=== PATIENT | female | born 1965 | race African-American/Black ===

== ENCOUNTER 2019-11-01 21:28 | Emergency (ER) | payer OTHER ==
[~2019-11-01] VITALS: Ht 165.1 cm; Wt 63.0 kg
[2019-11-02 04:19] VITALS: BP 135/7
[2019-11-02] MEDS ORDERED: KETOROLAC 30MG/ML VIAL IM ONE (04:30)
== END 2019-11-02 07:03 | disposition home or self-care (01) ==
LOC: ER 21:28
DX: G89.29 Other chronic pain (principal); R07.89 Other chest pain; M25.551 Pain in right hip; I10 Essential (primary) hypertension; I25.2 Old myocardial infarction; F14.10 Cocaine abuse, uncomplicated; F12.10 Cannabis abuse, uncomplicated
CPT/HCPCS: 93005; 96372; 99283; J1885

== ENCOUNTER 2020-05-15 13:52 | Emergency (ER) | payer OTHER ==
[~2020-05-15] VITALS: Ht 165.1 cm; Wt 7.0 kg
[2020-05-15] MEDS ORDERED: MAGNESIUM/ALUMINUM HYDROXIDE/SIMETHICONE 30ML UDC PO STA (14:20)
[2020-05-15] MEDS ORDERED: KETOROLAC 30MG/ML VIAL IV STA (14:20)
[2020-05-15] MEDS ORDERED: SODIUM CHLORIDE 0.9% 1,000 ML IV ONE (14:20)
[2020-05-15 15:22] LABS: CHLORIDE 106 mEq/L (98-107)
[2020-05-15 15:25] LABS: ETHANOL BLOOD < 10 mg/dL
[2020-05-15 15:26] LABS: INR 1.1; PROTHROMBIN TIME 12.1 sec (9.6-11.0)
[2020-05-15 15:30] LABS: HEMOGLOBIN. 7.3 g/dL (12.0-16.0); MEAN CORPUSCULAR HEMOGLOBIN 19.4 pg (28.0-32.0); MEAN CORPUSCULAR VOLUME 64.1 fL (81.0-99.0); MEAN PLATELET VOLUME 7.5 fl (7.4-10.4); PLATELET 428 x1000/uL (130-400); RED BLOOD CELL COUNT 3.75 mill/uL (4.2-5.4); RED CELL DISTRIBUTION WIDTH 21.3 % (11.6-14.6)
[2020-05-15 16:21] LABS: CLARITY URINE CLOUDY (CLEAR); COLOR URINE DARK YELLOW (YELLOW); KETONES URINE TRACE (NEGATIVE); LEUKOCYTE ESTERASE URINE 2+ (NEGATIVE); NITRITE URINE NEGATIVE (NEGATIVE); OCCULT BLOOD URINE NEGATIVE (NEGATIVE); PROTEIN URINE 1+ (NEGATIVE); SPECIFIC GRAVITY URINE 1.025 (1.005-1.030)
[2020-05-15 16:39] LABS: *AMPHETAMINES SCREEN URINE NEGATIVE (NEGATIVE); *BARBITURATES SCREEN URINE NEGATIVE (NEGATIVE)
[2020-05-15 16:40] LABS: *BENZODIAZEPINES SCREEN URINE NEGATIVE (NEGATIVE); *COCAINE SCREEN URINE PRESUMTIVE POSITIVE (NEGATIVE); CANNABINOID URINE SCREEN PRESUMTIVE POSITIVE (NEGATIVE); METHADONE URINE SCREEN NEGATIVE (NEGATIVE); OPIATES URINE SCREEN NEGATIVE (NEGATIVE); PHENCYCLIDINE URINE SCREEN PRESUMTIVE POSITIVE (NEGATIVE)
[2020-05-15] MEDS ORDERED: MAGNESIUM CITRATE 300ML SOLUTION PO ONE (16:45)
[2020-05-15 16:50] LABS: PLATELET ESTIMATE SLIGHTLY INCREASED
[2020-05-15 18:15] VITALS: BP 149/82
== END 2020-05-15 18:52 | disposition home or self-care (01) ==
LOC: ER 13:52
DX: N30.00 Acute cystitis without hematuria (principal); I25.2 Old myocardial infarction; I10 Essential (primary) hypertension; J44.9 Chronic obstructive pulmonary disease, unspecified; F14.10 Cocaine abuse, uncomplicated
CPT/HCPCS: 36415; 71045; 80053; 80305; 80320; 81003; 83690; 85025; 85610; 93005; 96374; 99285; J1885; J7030; G0480

== ENCOUNTER 2020-05-28 22:10 | Emergency (ER) | payer OTHER ==
[~2020-05-28] VITALS: Ht 157.5 cm; Wt 60.0 kg
[2020-05-29] MEDS ORDERED: MAGNESIUM/ALUMINUM HYDROXIDE/SIMETHICONE 30ML UDC PO STA (01:23)
[2020-05-29] MEDS ORDERED: DOCUSATE SODIUM SUGAR FREE 100MG/10ML UDC NG ONE (02:45)
[2020-05-29 05:00] LABS: CLARITY URINE CLOUDY (CLEAR); COLOR URINE YELLOW (YELLOW); KETONES URINE NEGATIVE (NEGATIVE); LEUKOCYTE ESTERASE URINE 2+ (NEGATIVE); NITRITE URINE NEGATIVE (NEGATIVE); OCCULT BLOOD URINE NEGATIVE (NEGATIVE); PH URINE 7.5 (4.5-8.0); PROTEIN URINE 1+ (NEGATIVE); SPECIFIC GRAVITY URINE 1.019 (1.005-1.030)
[2020-05-29 05:03] LABS: CHLORIDE 107 mEq/L (98-107)
[2020-05-29 05:15] LABS: BASOPHILS % 0.4 % (0.0-2.0); EOSINOPHILS % 0.3 % (0.0-5.0); HEMATOCRIT. 28.9 % (36.0-48.0); HEMOGLOBIN. 9.3 g/dL (12.0-16.0); LYMPHOCYTES % 14.1 % (20.0-50.0); MEAN CORPUSCULAR HEMOGLOBIN 26.3 pg (28.0-32.0); MEAN CORPUSCULAR VOLUME 81.7 fL (81.0-99.0); MEAN PLATELET VOLUME 7.4 fl (7.4-10.4); MONOCYTES % 5.4 % (2.0-8.0); NEUTROPHILS % 79.8 % (40.0-76.0); PLATELET 347 x1000/uL (130-400); RED BLOOD CELL COUNT 3.54 mill/uL (4.2-5.4); RED CELL DISTRIBUTION WIDTH 26.3 % (11.6-14.6)
[2020-05-29] MEDS ORDERED: IPRATROPIUM BROMIDE (0.02%) 0.5MG/2.5ML NEB HHN STA (05:20)
[2020-05-29] MEDS ORDERED: ALBUTEROL (0.083%) 2.5MG/3ML NEB HHN STA (05:20)
[2020-05-29] MEDS ORDERED: ACETAMINOPHEN 325MG TABLET PO ONE (05:45)
[2020-05-29] MEDS ORDERED: CEFTRIAXONE 1 G PREMIX 50 ML IV ONE (06:00)
[2020-05-29] MEDS ORDERED: OLANZAPINE 10 MG/VIAL IM ONE (06:00)
[2020-05-29 06:56] LABS: PLATELET ESTIMATE NORMAL
[2020-05-29] MEDS ORDERED: METHYLPREDNISOLONE SOD SUCC 125 MG/2 ML VIAL IV STA (07:30)
[2020-05-29 09:45] VITALS: BP 124/65
== END 2020-05-29 10:22 | disposition short-term general hospital (02) ==
LOC: ER 22:10 → EDBEDREQTM 05-29 07:04 → EDBEDREQ 05-29 07:04 → ER 05-29 10:22 → CANBEDREQ 05-29 14:07
DX: R06.02 Shortness of breath (principal); N30.00 Acute cystitis without hematuria; J44.9 Chronic obstructive pulmonary disease, unspecified; I25.2 Old myocardial infarction; F14.10 Cocaine abuse, uncomplicated; Z98.890 Other specified postprocedural states
CPT/HCPCS: 36415; 71045; 80053; 81003; 81025; 85025; 87086; 94640; 96372; 96374; 96375; 99285; J0696; J2930; J3490; Z7610

== ENCOUNTER 2020-06-03 19:36 | Emergency (ER) | payer OTHER ==
[~2020-06-03] VITALS: Ht 172.7 cm; Wt 63.3 kg
[2020-06-03] MEDS ORDERED: ASPIRIN 81MG TABLET PO ONE (20:00)
[2020-06-03 20:45] LABS: BASOPHILS % 0.5 % (0.0-2.0); EOSINOPHILS % 0.7 % (0.0-5.0); HEMATOCRIT. 29.9 % (36.0-48.0); HEMOGLOBIN. 9.6 g/dL (12.0-16.0); LYMPHOCYTES % 12.1 % (20.0-50.0); MEAN CORPUSCULAR HEMOGLOBIN 25.7 pg (28.0-32.0); MEAN CORPUSCULAR VOLUME 80.1 fL (81.0-99.0); MEAN PLATELET VOLUME 7.6 fl (7.4-10.4); MONOCYTES % 10.9 % (2.0-8.0); NEUTROPHILS % 75.8 % (40.0-76.0); PLATELET 395 x1000/uL (130-400); RED BLOOD CELL COUNT 3.73 mill/uL (4.2-5.4); RED CELL DISTRIBUTION WIDTH 24.8 % (11.6-14.6)
[2020-06-03 20:52] LABS: CHLORIDE 106 mEq/L (98-107)
[2020-06-03 20:56] LABS: INR 1.2; PARTIAL THROMBOPLASTIN TIME 28.2 sec (23.4-31.0); PROTHROMBIN TIME 12.2 sec (9.6-11.0)
[2020-06-03 22:53] LABS: PLATELET ESTIMATE NORMAL
[2020-06-03 23:46] VITALS: BP 149/65
== END 2020-06-04 00:02 | disposition short-term general hospital (02) ==
LOC: ER 19:36 → CANBEDREQ 06-04 00:20
DX: R07.89 Other chest pain (principal); I10 Essential (primary) hypertension; I25.2 Old myocardial infarction; F14.10 Cocaine abuse, uncomplicated; F12.10 Cannabis abuse, uncomplicated; Z98.61 Coronary angioplasty status
CPT/HCPCS: 36415; 71045; 80053; 83880; 84484; 85025; 85610; 85730; 93005; 99285; Z7610

== ENCOUNTER 2020-06-26 03:45 | Emergency (ER) | payer OTHER ==
[~2020-06-26] VITALS: Ht 165.1 cm; Wt 64.0 kg
[2020-06-26] MEDS ORDERED: SODIUM CHLORIDE 0.9% 1,000 ML IV ONE (05:17)
[2020-06-26] MEDS ORDERED: HYDROCODONE/ACETAMINOPHEN 5/325MG TABLET PO ONE (05:30)
[2020-06-26] MEDS ORDERED: METHOCARBAMOL 500MG TABLET PO ONE (05:30)
[2020-06-26 06:32] LABS: HEMATOCRIT. 24.1 % (36.0-48.0); HEMOGLOBIN. 7.9 g/dL (12.0-16.0); MEAN CORPUSCULAR HEMOGLOBIN 26.9 pg (28.0-32.0); MEAN CORPUSCULAR VOLUME 82.2 fL (81.0-99.0); MEAN PLATELET VOLUME 6.6 fl (7.4-10.4); PLATELET 328 x1000/uL (130-400); RED BLOOD CELL COUNT 2.93 mill/uL (4.2-5.4); RED CELL DISTRIBUTION WIDTH 21.2 % (11.6-14.6)
[2020-06-26 06:39] LABS: CHLORIDE 104 mEq/L (98-107)
[2020-06-26 06:42] LABS: INR 1.1; PROTHROMBIN TIME 11.9 sec (9.6-11.0)
[2020-06-26 06:43] LABS: ETHANOL BLOOD < 10 mg/dL
[2020-06-26 07:24] LABS: PLATELET ESTIMATE NORMAL
[2020-06-26] MEDS ORDERED: LORAZEPAM 2MG/ML CPJ IV ONE (08:00)
[2020-06-26 08:45] LABS: *AMPHETAMINES SCREEN URINE NEGATIVE (NEGATIVE); *BARBITURATES SCREEN URINE NEGATIVE (NEGATIVE); *BENZODIAZEPINES SCREEN URINE NEGATIVE (NEGATIVE)
[2020-06-26 08:46] LABS: *COCAINE SCREEN URINE PRESUMTIVE POSITIVE (NEGATIVE); CANNABINOID URINE SCREEN PRESUMTIVE POSITIVE (NEGATIVE); METHADONE URINE SCREEN NEGATIVE (NEGATIVE); OPIATES URINE SCREEN PRESUMTIVE POSITIVE (NEGATIVE); PHENCYCLIDINE URINE SCREEN PRESUMTIVE POSITIVE (NEGATIVE)
[2020-06-26 18:22] VITALS: BP 139/91
== END 2020-06-26 18:22 | disposition home or self-care (01) ==
LOC: ER 03:45
DX: S16.1XXA Strain of muscle, fascia and tendon at neck level, initial encounter (principal); M62.830 Muscle spasm of back; J45.909 Unspecified asthma, uncomplicated; I25.2 Old myocardial infarction; I10 Essential (primary) hypertension; F14.10 Cocaine abuse, uncomplicated; F19.10 Other psychoactive substance abuse, uncomplicated; Z98.890 Other specified postprocedural states; X58.XXXA Exposure to other specified factors, initial encounter; Y93.89 Activity, other specified; Y92.89 Other specified places as the place of occurrence of the external cause; Y99.8 Other external cause status
CPT/HCPCS: 36415; 80048; 80305; 80320; 85025; 85610; 96374; 99285; J2060; J7030; G0480

== ENCOUNTER 2020-06-29 12:34 | Emergency (ER) | payer OTHER ==
[~2020-06-29] VITALS: Ht 167.6 cm; Wt 57.0 kg
[2020-06-29] MEDS ORDERED: HYDROCODONE/ACETAMINOPHEN 5/325MG TABLET PO ONE (13:15)
[2020-06-29 15:15] LABS: HEMATOCRIT. 24.1 % (36.0-48.0); HEMOGLOBIN. 7.9 g/dL (12.0-16.0); MEAN CORPUSCULAR HEMOGLOBIN 26.9 pg (28.0-32.0); MEAN CORPUSCULAR VOLUME 81.6 fL (81.0-99.0); MEAN PLATELET VOLUME 6.5 fl (7.4-10.4); PLATELET 325 x1000/uL (130-400); RED BLOOD CELL COUNT 2.95 mill/uL (4.2-5.4); RED CELL DISTRIBUTION WIDTH 21.4 % (11.6-14.6)
[2020-06-29 15:20] LABS: CHLORIDE 105 mEq/L (98-107)
[2020-06-29 15:22] LABS: INR 1.1; PROTHROMBIN TIME 11.7 sec (9.6-11.0)
[2020-06-29 15:58] VITALS: BP 148/88
[2020-06-29 16:25] LABS: NUCLEATED RED BLOOD CELLS 1 /100 WBC; PLATELET ESTIMATE NORMAL
== END 2020-06-29 15:58 | disposition home or self-care (01) ==
LOC: ER 12:34
DX: M79.671 Pain in right foot (principal); M79.672 Pain in left foot; I25.2 Old myocardial infarction; I10 Essential (primary) hypertension; J45.909 Unspecified asthma, uncomplicated
CPT/HCPCS: 36415; 73620; 80053; 85025; 99284

== ENCOUNTER 2020-09-04 08:28 | Emergency (ER) | payer OTHER ==
[~2020-09-04] VITALS: Ht 167.6 cm; Wt 70.0 kg
[2020-09-04] MEDS ORDERED: SODIUM CHLORIDE 0.9% 1,000 ML IV ONE (09:15)
[2020-09-04 09:26] LABS: HEMATOCRIT. 29.8 % (36.0-48.0); HEMOGLOBIN. 8.8 g/dL (12.0-16.0); MEAN CORPUSCULAR HEMOGLOBIN 19.9 pg (28.0-32.0); MEAN CORPUSCULAR VOLUME 67.1 fL (81.0-99.0); MEAN PLATELET VOLUME 7.6 fl (7.4-10.4); PLATELET 380 x1000/uL (130-400); RED BLOOD CELL COUNT 4.44 mill/uL (4.2-5.4); RED CELL DISTRIBUTION WIDTH 22.3 % (11.6-14.6)
[2020-09-04 09:27] LABS: CHLORIDE 104 mEq/L (98-107)
[2020-09-04 09:31] LABS: ETHANOL BLOOD < 10 mg/dL
[2020-09-04 09:36] LABS: CLARITY URINE CLOUDY (CLEAR); COLOR URINE DARK YELLOW (YELLOW); KETONES URINE NEGATIVE (NEGATIVE); LEUKOCYTE ESTERASE URINE 3+ (NEGATIVE); NITRITE URINE NEGATIVE (NEGATIVE); OCCULT BLOOD URINE TRACE (NEGATIVE); PROTEIN URINE 1+ (NEGATIVE); SPECIFIC GRAVITY URINE 1.022 (1.005-1.030)
[2020-09-04 09:36] LABS: CREATINE KINASE 98 IU/L (26-192)
[2020-09-04 09:52] LABS: *AMPHETAMINES SCREEN URINE NEGATIVE (NEGATIVE); *BARBITURATES SCREEN URINE NEGATIVE (NEGATIVE); *BENZODIAZEPINES SCREEN URINE NEGATIVE (NEGATIVE); *COCAINE SCREEN URINE PRESUMTIVE POSITIVE (NEGATIVE)
[2020-09-04 09:53] LABS: CANNABINOID URINE SCREEN PRESUMTIVE POSITIVE (NEGATIVE); METHADONE URINE SCREEN NEGATIVE (NEGATIVE); OPIATES URINE SCREEN NEGATIVE (NEGATIVE); PHENCYCLIDINE URINE SCREEN PRESUMTIVE POSITIVE (NEGATIVE)
[2020-09-04] MEDS ORDERED: PREDNISONE 20MG TABLET PO ONE (10:45)
[2020-09-04] MEDS ORDERED: ACETAMINOPHEN 650MG/20.3ML UDC PO ONE (10:45)
[2020-09-04] MEDS ORDERED: CEFTRIAXONE 1 G PREMIX 50 ML IV ONE (14:15)
[2020-09-04] MEDS ORDERED: ASPIRIN 325MG TABLET PO ONE (14:15)
[2020-09-04 14:18] LABS: PLATELET ESTIMATE NORMAL
[2020-09-04 16:30] VITALS: BP 132/78
== END 2020-09-04 17:15 | disposition short-term general hospital (02) ==
LOC: ER 08:42
DX: R07.89 Other chest pain (principal); F19.90 Other psychoactive substance use, unspecified, uncomplicated; N39.0 Urinary tract infection, site not specified; I25.2 Old myocardial infarction; I10 Essential (primary) hypertension; F12.10 Cannabis abuse, uncomplicated; J45.909 Unspecified asthma, uncomplicated; F14.10 Cocaine abuse, uncomplicated; F16.10 Hallucinogen abuse, uncomplicated
CPT/HCPCS: 36415; 71045; 80053; 80305; 80307; 80320; 80329; 81003; 82550; 82962; 84484; 85025; 87086; 93005; 96365; 99285; J0696; J7030; J7512; G0480

== ENCOUNTER 2020-09-22 22:15 | Emergency (ER) | payer OTHER ==
[~2020-09-22] VITALS: Ht 170.2 cm; Wt 50.0 kg
[2020-09-22] MEDS ORDERED: ASPIRIN 81MG TABLET PO ONE (23:30)
[2020-09-22] MEDS ORDERED: NITROGLYCERIN 0.4MG TABLET SL SL PRN (23:30)
[2020-09-23 00:06] LABS: HEMATOCRIT. 27.6 % (36.0-48.0); HEMOGLOBIN. 8.4 g/dL (12.0-16.0); MEAN CORPUSCULAR HEMOGLOBIN 20.5 pg (28.0-32.0); MEAN CORPUSCULAR VOLUME 67.2 fL (81.0-99.0); MEAN PLATELET VOLUME 6.2 fl (7.4-10.4); PLATELET 506 x1000/uL (130-400); RED CELL DISTRIBUTION WIDTH 24.7 % (11.6-14.6)
[2020-09-23 00:08] LABS: CHLORIDE 103 mEq/L (98-107)
[2020-09-23 00:14] LABS: ETHANOL BLOOD < 10 mg/dL
[2020-09-23 00:31] LABS: PLATELET ESTIMATE INCREASED
[2020-09-23] MEDS ORDERED: ASPIRIN 81MG TABLET PO SCH (04:00)
[2020-09-23 06:04] VITALS: BP 127/80
== END 2020-09-23 06:24 | disposition home or self-care (01) ==
LOC: ER 22:15
DX: R07.89 Other chest pain (principal); F19.10 Other psychoactive substance abuse, uncomplicated; J45.909 Unspecified asthma, uncomplicated; I10 Essential (primary) hypertension; I25.2 Old myocardial infarction; F12.10 Cannabis abuse, uncomplicated; F14.10 Cocaine abuse, uncomplicated
CPT/HCPCS: 36415; 71045; 80053; 80320; 83880; 84484; 85025; 93005; 99285; Z7610; G0480

== ENCOUNTER 2021-01-02 05:57 | Emergency (ER) | payer OTHER ==
[~2021-01-02] VITALS: Ht 162.6 cm; Wt 64.0 kg
[2021-01-02 06:54] LABS: BASOPHILS % 0.5 % (0.0-2.0); EOSINOPHILS % 0.8 % (0.0-5.0); HEMOGLOBIN. 7.6 g/dL (12.0-16.0); LYMPHOCYTES % 7.2 % (20.0-50.0); MEAN CORPUSCULAR VOLUME 65.3 fL (81.0-99.0); MEAN PLATELET VOLUME 6.5 fl (7.4-10.4); MONOCYTES % 9.4 % (2.0-8.0); NEUTROPHILS % 82.1 % (40.0-76.0); PLATELET 491 x1000/uL (130-400); RED BLOOD CELL COUNT 3.82 mill/uL (4.2-5.4); RED CELL DISTRIBUTION WIDTH 20.9 % (11.6-14.6)
[2021-01-02 07:04] LABS: CHLORIDE 101 mEq/L (98-107)
[2021-01-02 07:30] VITALS: BP 137/82
[2021-01-02 11:30] LABS: PLATELET ESTIMATE INCREASED
== END 2021-01-02 12:35 | disposition short-term general hospital (02) ==
LOC: ER 05:57
DX: R07.9 Chest pain, unspecified (principal); I10 Essential (primary) hypertension; I25.2 Old myocardial infarction; I25.10 Atherosclerotic heart disease of native coronary artery without angina pectoris; Z95.5 Presence of coronary angioplasty implant and graft
CPT/HCPCS: 36415; 71045; 80053; 83880; 84484; 85025; 93005; 99285

== ENCOUNTER 2021-01-11 14:05 | Emergency (ER) | payer OTHER ==
[~2021-01-11] VITALS: Ht 152.4 cm; Wt 46.0 kg
[2021-01-11 15:01] LABS: HEMATOCRIT. 26.5 % (36.0-48.0); MEAN CORPUSCULAR HEMOGLOBIN 20.3 pg (28.0-32.0); MEAN PLATELET VOLUME 8.5 fl (7.4-10.4); PLATELET 415 x1000/uL (130-400); RED BLOOD CELL COUNT 3.95 mill/uL (4.2-5.4); RED CELL DISTRIBUTION WIDTH 21.9 % (11.6-14.6)
[2021-01-11 15:03] LABS: CHLORIDE 101 mEq/L (98-107)
[2021-01-11 16:01] LABS: PLATELET ESTIMATE SLIGHTLY INCREASED
[2021-01-11 16:04] LABS: INR 1.2
[2021-01-11 17:06] VITALS: BP 113/59
== END 2021-01-11 17:28 | disposition home or self-care (01) ==
LOC: ER 14:05
DX: M79.10 Myalgia, unspecified site (principal); I25.2 Old myocardial infarction; I10 Essential (primary) hypertension; Z98.890 Other specified postprocedural states
CPT/HCPCS: 36415; 80053; 85025; 99283

== ENCOUNTER 2021-01-27 22:11 | Inpatient (IN) | payer OTHER ==
[~2021-01-27] VITALS: Ht 162.6 cm; Wt 56.8 kg
[2021-01-27] MEDS ORDERED: ASPIRIN 81MG TABLET PO ONE (23:00)
[2021-01-28 00:24] LABS: CHLORIDE 107 mEq/L (98-107)
[2021-01-28 00:27] LABS: HEMATOCRIT. 34.3 % (36.0-48.0); HEMOGLOBIN. 10.6 g/dL (12.0-16.0); MEAN CORPUSCULAR HEMOGLOBIN 25.9 pg (28.0-32.0); MEAN CORPUSCULAR VOLUME 83.8 fL (81.0-99.0); MEAN PLATELET VOLUME 7.3 fl (7.4-10.4); PLATELET 317 x1000/uL (130-400); RED BLOOD CELL COUNT 4.09 mill/uL (4.2-5.4); RED CELL DISTRIBUTION WIDTH 23.6 % (11.6-14.6)
[2021-01-28] MEDS ORDERED: FUROSEMIDE 40MG/4ML VIAL IVP ONE (01:00)
[2021-01-28 01:11] LABS: CLARITY URINE CLOUDY (CLEAR); COLOR URINE DARK YELLOW (YELLOW); KETONES URINE TRACE (NEGATIVE); LEUKOCYTE ESTERASE URINE 2+ (NEGATIVE); NITRITE URINE NEGATIVE (NEGATIVE); OCCULT BLOOD URINE NEGATIVE (NEGATIVE); PH URINE 5.5 (4.5-8.0); PROTEIN URINE 1+ (NEGATIVE); SPECIFIC GRAVITY URINE 1.029 (1.005-1.030)
[2021-01-28 01:24] LABS: OPIATES URINE SCREEN NEGATIVE (NEGATIVE)
[2021-01-28 01:25] LABS: *AMPHETAMINES SCREEN URINE NEGATIVE (NEGATIVE); *BARBITURATES SCREEN URINE NEGATIVE (NEGATIVE); *BENZODIAZEPINES SCREEN URINE NEGATIVE (NEGATIVE); *COCAINE SCREEN URINE PRESUMTIVE POSITIVE (NEGATIVE); CANNABINOID URINE SCREEN PRESUMTIVE POSITIVE (NEGATIVE); METHADONE URINE SCREEN NEGATIVE (NEGATIVE); PHENCYCLIDINE URINE SCREEN NEGATIVE (NEGATIVE)
[2021-01-28 03:34] LABS: INR 1.1; PARTIAL THROMBOPLASTIN TIME 26.2 sec (23.4-31.0); PROTHROMBIN TIME 12.2 sec (9.6-11.0)
[2021-01-28] MEDS ORDERED: CEFTRIAXONE 1 G PREMIX 50 ML IV ONE (03:45)
[2021-01-28 04:39] LABS: PLATELET ESTIMATE NORMAL
[2021-01-28] MEDS ORDERED: GUAIFENESIN 200MG/10ML SUGAR FREE UDC PO PRN (07:45)
[2021-01-28] MEDS ORDERED: DOCUSATE SODIUM 100MG CAPSULE PO PRN (07:45)
[2021-01-28] MEDS ORDERED: DIPHENHYDRAMINE 50MG/ML VIAL IV PRN (07:45)
[2021-01-28] MEDS ORDERED: LORAZEPAM 2MG/ML CPJ IV PRN (07:45)
[2021-01-28] MEDS ORDERED: MAGNESIUM/ALUMINUM HYDROXIDE/SIMETHICONE 30ML UDC PO PRN (07:45)
[2021-01-28] MEDS ORDERED: IPRATROPIUM/ALBUTEROL 0.5-3(2.5)MG/3ML NEB HHN PRN (07:45)
[2021-01-28] MEDS ORDERED: ONDANSETRON HCL 4MG/2ML INJ IV PRN (07:45)
[2021-01-28] MEDS ORDERED: CLONIDINE 0.1MG TABLET PO PRN (07:45)
[2021-01-28] MEDS ORDERED: ACETAMINOPHEN 325MG TABLET PO PRN (07:45)
[2021-01-28] MEDS ORDERED: HYDROCODONE/ACETAMINOPHEN 5/325MG TABLET PO PRN (07:45)
[2021-01-28] MEDS ORDERED: HYDRALAZINE 20MG/ML VIAL IV PRN (07:45)
[2021-01-28 09:00] VITALS: BP 110/77
[2021-01-28] MEDS: ENOXAPARIN 40MG/0.4ML SYR SUBCUT SCH (09:04)
[2021-01-28 10:08] VITALS: BP 110/77
[2021-01-28 12:00] VITALS: BP 121/68
[2021-01-28] MEDS: SODIUM CHLORIDE 0.9% INJ 3ML FLUSH IVF SCH ×2 (13:30→22:10)
[2021-01-28 16:05] VITALS: BP 102/60
[2021-01-28 16:12] LABS: CREATINE KINASE MB FRACTION 3.3 ng/mL (0.5-3.6)
[2021-01-28 22:00] VITALS: BP 125/81
[2021-01-29] VITALS: BP 120/70
[2021-01-29 00:47] LABS: CREATINE KINASE MB FRACTION 3.2 ng/mL (0.5-3.6)
[2021-01-29 04:00] VITALS: BP 103/69
[2021-01-29] MEDS: SODIUM CHLORIDE 0.9% INJ 3ML FLUSH IVF SCH ×2 (05:18→14:43)
[2021-01-29 06:31] LABS: HEMATOCRIT. 27.1 % (36.0-48.0); HEMOGLOBIN. 8.5 g/dL (12.0-16.0); MEAN CORPUSCULAR HEMOGLOBIN 25.5 pg (28.0-32.0); MEAN CORPUSCULAR VOLUME 81.1 fL (81.0-99.0); MEAN PLATELET VOLUME 7.6 fl (7.4-10.4); PLATELET 343 x1000/uL (130-400); RED BLOOD CELL COUNT 3.34 mill/uL (4.2-5.4); RED CELL DISTRIBUTION WIDTH 24.6 % (11.6-14.6)
[2021-01-29 06:56] LABS: CHLORIDE 105 mEq/L (98-107)
[2021-01-29 08:00] VITALS: BP 116/68
[2021-01-29] MEDS ORDERED: FUROSEMIDE 40MG/4ML VIAL IVP SCH (09:00)
[2021-01-29] MEDS: ENOXAPARIN 40MG/0.4ML SYR SUBCUT SCH (09:16)
[2021-01-29 13:46] LABS: NUCLEATED RED BLOOD CELLS 1 /100 WBC
[2021-01-29 13:47] LABS: PLATELET ESTIMATE NORMAL
[2021-01-30] MEDS ORDERED: ASPIRIN 81MG TABLET PO SCH (09:00)
== END 2021-01-29 17:20 | disposition left against medical advice (07) | DRG 243 ==
LOC: ER 22:19 → MICUSO 01-28 02:20 → ENRESERV 01-28 07:24 → 5WST 01-28 07:30
PROVIDERS: ADMIT Internal Medicine; ATTEND Internal Medicine
DX: K21.9 Gastro-esophageal reflux disease without esophagitis (principal); I25.10 Atherosclerotic heart disease of native coronary artery without angina pectoris; R79.89 Other specified abnormal findings of blood chemistry; E46 Unspecified protein-calorie malnutrition; E78.5 Hyperlipidemia, unspecified; M10.9 Gout, unspecified; D64.9 Anemia, unspecified; R77.8 Other specified abnormalities of plasma proteins; F17.200 Nicotine dependence, unspecified, uncomplicated; F14.10 Cocaine abuse, uncomplicated; E87.70 Fluid overload, unspecified; I11.9 Hypertensive heart disease without heart failure; I25.2 Old myocardial infarction; Z95.5 Presence of coronary angioplasty implant and graft; Z68.21 Body mass index [BMI] 21.0-21.9, adult; Z53.29 Procedure and treatment not carried out because of patient's decision for other reasons; F12.10 Cannabis abuse, uncomplicated; I11.0 Hypertensive heart disease with heart failure; I50.23 Acute on chronic systolic (congestive) heart failure; E44.0 Moderate protein-calorie malnutrition; R64 Cachexia
CPT/HCPCS: 36415; 71045; 80053; 80305; 81003; 82270; 82550; 82553; 83880; 84484; 85025; 93005; 93306; 93970; 96365; 99285; J0696; J1650; J1940; J2060

== ENCOUNTER 2021-01-30 23:13 | Emergency (ER) | payer OTHER ==
[~2021-01-30] VITALS: Ht 162.6 cm; Wt 65.0 kg
[2021-01-30] MEDS ORDERED: NITROGLYCERIN OINT 1GM/INCH UDPKT TD ONE (23:30)
[2021-01-30] MEDS ORDERED: ASPIRIN 81MG TABLET PO ONE (23:30)
[2021-01-31] MEDS ORDERED: LORAZEPAM 2MG/ML CPJ IV ONE
[2021-01-31 00:21] LABS: *BARBITURATES SCREEN URINE NEGATIVE (NEGATIVE)
[2021-01-31 00:22] LABS: *AMPHETAMINES SCREEN URINE NEGATIVE (NEGATIVE); *BENZODIAZEPINES SCREEN URINE NEGATIVE (NEGATIVE); *COCAINE SCREEN URINE PRESUMTIVE POSITIVE (NEGATIVE); METHADONE URINE SCREEN NEGATIVE (NEGATIVE); OPIATES URINE SCREEN NEGATIVE (NEGATIVE)
[2021-01-31 00:23] LABS: CANNABINOID URINE SCREEN PRESUMTIVE POSITIVE (NEGATIVE); PHENCYCLIDINE URINE SCREEN NEGATIVE (NEGATIVE)
[2021-01-31 00:25] LABS: BASOPHILS % 0.6 % (0.0-2.0); EOSINOPHILS % 0.3 % (0.0-5.0); HEMATOCRIT. 26.6 % (36.0-48.0); HEMOGLOBIN. 8.4 g/dL (12.0-16.0); LYMPHOCYTES % 17.5 % (20.0-50.0); MEAN CORPUSCULAR HEMOGLOBIN 25.5 pg (28.0-32.0); MEAN CORPUSCULAR VOLUME 80.6 fL (81.0-99.0); MEAN PLATELET VOLUME 7.4 fl (7.4-10.4); MONOCYTES % 7.8 % (2.0-8.0); NEUTROPHILS % 73.8 % (40.0-76.0); PLATELET 357 x1000/uL (130-400); RED BLOOD CELL COUNT 3.31 mill/uL (4.2-5.4); RED CELL DISTRIBUTION WIDTH 25.1 % (11.6-14.6)
[2021-01-31 00:35] LABS: INR 1.2
[2021-01-31 00:45] LABS: CHLORIDE 102 mEq/L (98-107)
[2021-01-31] MEDS ORDERED: IPRATROPIUM/ALBUTEROL 0.5-3(2.5)MG/3ML NEB HHN PRN (08:00)
[2021-01-31] MEDS ORDERED: ACETAMINOPHEN 325MG TABLET PO PRN (08:00)
[2021-01-31] MEDS ORDERED: ENOXAPARIN 40MG/0.4ML SYR SUBCUT SCH (08:00)
[2021-01-31] MEDS ORDERED: CLONIDINE 0.1MG TABLET PO PRN (08:00)
[2021-01-31] MEDS ORDERED: MAGNESIUM/ALUMINUM HYDROXIDE/SIMETHICONE 30ML UDC PO PRN (08:00)
[2021-01-31] MEDS ORDERED: HYDRALAZINE 20MG/ML VIAL IV PRN (08:00)
[2021-01-31] MEDS ORDERED: ONDANSETRON HCL 4MG/2ML INJ IV PRN (08:00)
[2021-01-31] MEDS ORDERED: DIPHENHYDRAMINE 50MG/ML VIAL IV PRN (08:00)
[2021-01-31] MEDS ORDERED: DOCUSATE SODIUM 100MG CAPSULE PO PRN (08:00)
[2021-01-31] MEDS ORDERED: GUAIFENESIN 200MG/10ML SUGAR FREE UDC PO PRN (08:00)
[2021-01-31 08:49] VITALS: BP 130/86
[2021-01-31] MEDS ORDERED: SODIUM CHLORIDE 0.9% INJ 3ML FLUSH IVF SCH (14:00)
[2021-01-31] MEDS ORDERED: HYDROXYZINE 25MG TABLET PO PRN (21:00)
== END 2021-01-31 09:38 | disposition short-term general hospital (02) ==
LOC: ER 23:13 → EDBEDREQ 01-31 01:09 → EDBEDREQSVC 01-31 01:09 → EDBEDREQTM 01-31 01:11 → ENRESERV 01-31 01:39 → CANRESERV 01-31 01:39 → CANBEDREQ 01-31 05:22 → ER 01-31 09:38
DX: I24.9 Acute ischemic heart disease, unspecified (principal); I11.0 Hypertensive heart disease with heart failure; I50.9 Heart failure, unspecified; D50.9 Iron deficiency anemia, unspecified; R07.9 Chest pain, unspecified; F14.10 Cocaine abuse, uncomplicated; F31.9 Bipolar disorder, unspecified; R77.8 Other specified abnormalities of plasma proteins; J44.9 Chronic obstructive pulmonary disease, unspecified
CPT/HCPCS: 36415; 71045; 80053; 80305; 83880; 84484; 85025; 85610; 93005; 96374; 99285; J2060

== ENCOUNTER 2021-02-28 19:28 | Emergency (ER) | payer OTHER ==
[~2021-02-28] VITALS: Ht 165.1 cm; Wt 50.0 kg
[2021-02-28] MEDS ORDERED: IPRATROPIUM BROMIDE (0.02%) 0.5MG/2.5ML NEB HHN STA (19:43)
[2021-02-28] MEDS ORDERED: PREDNISONE 20MG TABLET PO STA (19:43)
[2021-02-28] MEDS ORDERED: ALBUTEROL (0.083%) 2.5MG/3ML NEB HHN STA (19:43)
[2021-02-28] MEDS ORDERED: AZITHROMYCIN 500 MG TABLET PO ONE (19:45)
[2021-02-28 20:15] VITALS: BP 127/85
[2021-02-28] MEDS ORDERED: AZIT250T12 MT (21:25)
[2021-02-28] MEDS ORDERED: P50 MT (21:25)
[2021-02-28] MEDS ORDERED: ALBU6.7H9 INH (21:26)
== END 2021-02-28 21:38 | disposition home or self-care (01) ==
LOC: ER 19:28
DX: J44.1 Chronic obstructive pulmonary disease with (acute) exacerbation (principal); I11.0 Hypertensive heart disease with heart failure; I50.9 Heart failure, unspecified; F17.200 Nicotine dependence, unspecified, uncomplicated
CPT/HCPCS: 71045; 93005; 94640; 99283; Z7610